=== PATIENT | female | born 1940 | race Caucasian/White ===

== ENCOUNTER → 2017-07-20 11:22 | Outpatient (CLI) | payer MEDICARE, OTHER, SELFPAY ==
[2017-07-20 12:18] LABS: AST(SGOT) 25 U/L (15-37); Alanine Aminotransfer ALT/SGPT 27 U/L (13-56); Albumin, Serum 3.5 g/dL (3.2-5.0); Alkaline Phosphatase 105 U/L (45-117); Bilirubin, Direct 0.08 mg/dL (0.00-0.30); Cholesterol 208 mg/dL (200); High Density Lipoprotein 54 mg/dL; Protein, Total 7.5 g/dL (6.4-8.2); Triglycerides 64 mg/dL; Very Low Density Lipoprotein 13 mg/dL (5-40)
== END ==
PROVIDERS: Family Provider Family Medicine; PCP Family Medicine; Visit Provider Internal Medicine Cardiovascular Disease
DX: E78.5 Hyperlipidemia, unspecified (principal)
CPT/HCPCS: 36415; 80061; 80076

== ENCOUNTER → 2018-01-01 11:32 | Outpatient (CLI) | payer MEDICARE, OTHER, SELFPAY ==
[2018-01-01 14:11] LABS: Hematocrit 41.6 % (37-47); Hemoglobin 14.6 g/dl (12.0-15.0); Mean Corpuscular Hgb 31.3 pg (27.0-32.0); Mean Corpuscular Volume 89.1 fL (81-99); Red Blood Count 4.67 M/mm3 (4.2-5.4); White Blood Count 6.4 K/mm3 (4.4-11.0)
[2018-01-01 14:12] LABS: Absolute Lymphocyte Count 2.32 X10^3/ul (0.83-4.51); Absolute Neutrophil Count 3.5 X10^3/uL (2.0-7.7); Basophil# 0.03 X10^3/uL; Basophil% 0.5 % (0-1); Eosinophil# 0.21 X10^3/uL; Eosinophils% 3.3 % (0-5); Lymphocyte # 2.32 X10^3/ul (4.0); Lymphocyte % 36.1 % (19-41); Mean Corp Hgb Conc 35.1 g/gl (32-36); Monocyte# 0.39 X10^3/uL; Monocyte% 6.1 % (0-10); Neutrophil # 3.47 X10^3/uL (2.7-7.7); Neutrophil % 53.8 % (47-70); POSITIVE COUNT NO; POSITIVE DIFFERENTIAL NO; POSITIVE MORPHOLOGY NO; Platelet Count 212 K/mm3 (150-450); RBC Distribution Width CV 12.6 % (11.6-14.6); RBC Distribution Width SD 40.5 fl (35.1-43.9)
[2018-01-01 14:18] LABS: ALB/GLOB Ratio 0.8 RATIO (0.9-2.4); AST(SGOT) 25 U/L (15-37); Alanine Aminotransfer ALT/SGPT 31 U/L (13-56); Albumin, Serum 3.5 g/dL (3.2-5.0); Alkaline Phosphatase 100 U/L (45-117); Anion Gap 7 (5-15); BUN 17 mg/dL (7-18); BUN/Creat Ratio 20.2 RATIO (10-20); Calcium,Total 9.5 mg/dL (8.5-10.1); Chloride 107 mmol/L (98-107); Cholesterol 191 mg/dL (200); Creatinine, Serum 0.84 mg/dL (0.55-1.02); EST Glomerular Filtration Rate 69 mL/min (>60); Est Glom Filt Rate - Afr Amer 84 mL/min (>60); Ferritin 24 ng/mL (8-252); Globulin 4.3 g/dL (2.2-4.2); Glucose 90 mg/dL (74-106); High Density Lipoprotein 49 mg/dL; Protein, Total 7.8 g/dL (6.4-8.2); Sodium Level 140 mmol/L (136-145); Thyroid Stim Hormone (TSH) 0.69 uIU/mL (0.358-3.74); Triglycerides 81 mg/dL; Very Low Density Lipoprotein 16 mg/dL (5-40)
[2018-01-01 14:25] LABS: Microalbumin,Random Urine 9.5 mg/L (NO RANGE EST.); Microalbumin:Creatinine Ratio 7.5 mg/g CRE (<30 mg/g CRE)
[2018-01-02 09:54] LABS: Vitamin B12 471 pg/mL (211-911)
== END ==
PROVIDERS: Family Provider Family Medicine; PCP Family Medicine; Visit Provider Family Medicine
DX: Z00.00 Encounter for general adult medical examination without abnormal findings (principal); I10 Essential (primary) hypertension; R53.83 Other fatigue
CPT/HCPCS: 36415; 80053; 80061; 82043; 82570; 82607; 82728; 84443; 85025

== ENCOUNTER → 2018-04-20 10:32 | Outpatient (CLI) | payer MEDICARE, OTHER, SELFPAY ==
--- NOTE | 2018-04-20 10:35 | BI_ITS ---
MAMMOGRAPHY - BILATERAL SCREENING REASON FOR EXAM: Female, 78 years old. Routine annual screening examination. PERTINENT HISTORY: Non-contributory. Remote right excisional breast biopsy. TECHNIQUE: Digital bilateral breast suzanna (3D mammographic acquisition) in the CC and MLO projections. 2-D mediolateral oblique (MLO) and craniocaudad (CC) views of both breasts were obtained. CAD: Full Field Digital Mammography with Computer Added Detection was performed. COMPARISON: Comparison is made with prior study dated April 10, 2017 and April 20, 2015. FINDINGS: Breast Composition: There are scattered areas of fibroglandular density. There are no dominant masses or suspicious calcifications. Stable small bilateral axillary lymph nodes. No other significant abnormalities are identified. There has been no significant change since the prior study. BI/SCREENING MAMM (CAD), BILAT IMPRESSION: Stable bilateral screening mammogram. Yearly follow-up mammogram recommended. (A) ASSESSMENT CATEGORY: BIRADS Category 2: Benign. A letter regarding these results will be sent to the patient by the facility within 30 days. Approximately 10% of breast cancers are not detected by mammography. A normal mammogram should not delay biopsy of a clinically suspicious abnormality. [id number] Electronically Signed: Lambert Collins MD at 8:51 EST Tel [phone], Service support ,
--- OUTSIDE RECORDS SUMMARY | 2018-07-24 09:48 | XMS RPT_ITS ---
:1940 Author Organization [facility] Care Team Providers Name Role Phone Vj Isabel Attending Unavailable Chalo, Vj Referring Unavailable Vj Isabel Primary Care Unavailable Joss Cutler Attending Unavailable Vj Isabel Referring Unavailable Vj Isabel Attending Unavailable Chalo, Vj Primary Care Unavailable Laci Guzmán Attending Unavailable Vj Isabel Referring Unavailable Laci Guzmán Attending Unavailable Arielle, Bronson Referring Unavailable Vj Iasbel Primary Care Unavailable Joss Cutler Attending Unavailable Joss Cutler Referring Unavailable Vj Isabel Primary Care Unavailable Laci Guzmán Attending Unavailable Vj Isabel Referring Unavailable PROBLEMS PROBLEMS DATE TYPE CONDITION / CODE ATTENDING STATUS SOURCE 05/27/2018 Unknown L98.9 - Disorder He Joss Active [place] of the skin and Community subcutaneous Hospital tissue, Repository unspecified / L98.9(ICD-10) 01/01/2018 Unknown R53.83 - Other Vj Isabel Active [place] fatigue / Community R53.83(ICD-10) Hospital Repository 01/01/2018 Unknown I10 - Essential Vj Isabel Active [place] (primary) Community hypertension / Hospital I10(ICD-10) Repository 01/01/2018 Unknown Z00.00 - Encounter Vj Isabel Active [place] for general adult [facility] examination Repository without abnormal findings / Z00.00(ICD-10) 07/20/2017 Unknown E78.5 - ArielleLaci louise Active [place] Hyperlipidemia, Community unspecified / Hospital E78.5(ICD-10) Repository PROCEDURES PROCEDURES No Procedure Records FoundRESULTS RESULTS SCREENING MAMM (CAD), Observed: 04/20/2018 Status: F Source: [facility] 10:36 AM [facility] H[facility] REPOSITORY [facility] Imaging Services [address] [place] [address] SCREENING MAMM (CAD), BILAT MR#: [id number] Acct: [id number] Name: JEROME ROJAS Rep #: [id number] : 1940 F 78 From: Lambert Collins MD PCP: Vj Isabel MD Status: [facility] Study: SCREENING MAMM (CAD), BILAT Date of Exam: 04/20/18 Exam# [id number] Ordering Dr: Vj Isabel MD MAMMOGRAPHY - BILATERAL SCREENING REASON FOR EXAM: Female, 78 years old. Routine annual screening examination. PERTINENT HISTORY: Non-contributory. Remote right excisional breast biopsy. TECHNIQUE: Digital bilateral breast suzanna (3D mammographic acquisition) in the CC and MLO projections. 2-D mediolateral oblique (MLO) and craniocaudad (CC) views of both breasts were obtained. CAD: Full Field Digital Mammography with Computer Added Detection was performed. COMPARISON: Comparison is made with prior study dated April 10, 2017 and April 20, 2015. FINDINGS: Breast Composition: There are scattered areas of fibroglandular density. There are no dominant masses or suspicious calcifications. Stable small bilateral axillary lymph nodes. No other significant abnormalities are identified. There has been no significant change since the prior study. BI/SCREENING MAMM (CAD), BILAT IMPRESSION: Stable bilateral screening mammogram. Yearly follow-up mammogram recommended. (A) ASSESSMENT CATEGORY: BIRADS Category 2: Benign. A letter regarding these results will be sent to the patient by the facility within 30 days. Approximately 10% of breast cancers are not detected by mammography. A normal mammogram should not delay biopsy of a clinically suspicious abnormality. [id number] Electronically Signed: Lambert Collins MD at 8:51 EST Tel [phone], Service support , CC: Vj Isabel MD Bench Lathe Operator: Signed CBC W/DIFF, AUTOMATED Collected: 01/01/2018 Status: F Source: [place] 11:33 AM [facility] REPOSITORY TYPE CODE TESTS RESULT OUT OF RANGE REFERENCE UNITS LAB L100.1000 4.4-11.0 K/mm3 Normal WBC 6.4 LAB L100.1200 4.2-5.4 M/mm3 Normal RBC 4.67 LAB L100.1300 12.0-15.0 g/dl Normal HGB 14.6 LAB L100.1400 37-47 % Normal HCT 41.6 LAB L100.1500 81-99 fL Normal MCV 89.1 LAB L100.1600 27.0-32.0 pg Normal MCH 31.3 LAB L100.1700 32-36 g/gl Normal MCHC 35.1 LAB L100.1810 11.6-14.6 % Normal RDW CV 12.6 LAB L100.1820 35.1-43.9 fl Normal RDW SD 40.5 LAB L100.1900 150-450 K/mm3 Normal PLT 212 LAB L100.2000 6.2-12.0 fl Normal MPV 10.0 LAB L100.2100 47-70 % Normal NEUT% 53.8 LAB L100.2200 19-41 % Normal LY% 36.1 LAB L100.2300 0-10 % Normal MONO% 6.1 LAB L100.2400 0-5 % Normal EO% 3.3 LAB L100.2500 0-1 % Normal BASO% 0.5 LAB L100.2550 0.0-0.9 % Normal IM GRAN % 0.200 Result Comment: IG% - Immature Granulocytes (promyelocytes, myelocytes and metamyelocytes) > 1% indicates that a LEFT SHIFT is Present. LAB L100.2620 2.0-7.7 X10 3/uL Normal Absolute Neut 3.5 LAB L100.2720 0.83-4.51 X10 3/ul Normal Absolute Lymph 2.32 Performed By: #### L100.0100 #### [facility] [address] [place], [address] COMPREHENSIVE METABOLIC Collected: 01/01/2018 Status: F Source: [place] 11:33 AM [facility] REPOSITORY Order Comment: Order Date: 01/01/18 Order Info: 0786-1 - CMP Order Info: [id number] - LIPID Order Info: 3016-3 - TSH TYPE CODE TESTS RESULT OUT OF RANGE REFERENCE UNITS LAB L501.0100 74-106 mg/dL Normal GLU 90 Result Comment: Please note revised GLUCOSE reference range effective 2017. LAB L501.1000 7-18 mg/dL Normal BUN 17 LAB L501.1100 0.55-1.02 mg/dL Normal CREAT,SERUM 0.84 Result Comment: The validity of the calculated GFR AND GFRAA in patients over 70 years has not been determined. Clinical correlation is essential. LAB L501.1110 >60 mL/min Normal EST GFR 69 Result Comment: Non- GFR Calc LAB L501.1115 >60 mL/min Normal EST GFR - AA 84 Result Comment: GFR Calc LAB L501.1300 10-20 RATIO High BUN/CRE 20.2 LAB L501.1500 6.4-8.2 g/dL T Normal PROT 7.8 LAB L501.1800 3.2-5.0 g/dL Normal ALB 3.5 LAB L501.1950 2.2-4.2 g/dL High GLOB 4.3 LAB L501.2000 0.9-2.4 RATIO Low A/G 0.8 LAB L501.2200 8.5-10.1 mg/dL CA Normal 9.5 LAB L501.4100 15-37 U/L Normal AST 25 LAB L501.4305 45-117 U/L Normal ALK P 100 LAB L501.4405 13-56 U/L Normal ALT 31 LAB L501.4600 0.20-1.00 mg/dL T Normal BILI 0.30 LAB L501.5300 136-145 mmol/L NA Normal 140 LAB L501.5600 3.5-5.1 mmol/L K Normal 4.0 LAB L501.5900 98-107 mmol/L CL Normal 107 LAB L501.6100 21.0-32.0 mmol/L Normal CO2 26.0 LAB L501.6200 5-15 Normal GAP 7 Performed By: #### L500.4050, L500.4100, L501.9520, L502.0250 #### [facility] [address] [place], [place], [address] LIPID PROFILE Collected: 01/01/2018 Status: F Source: [place] 11:33 AM [facility] REPOSITORY Order Comment: Order Date: 01/01/18 Order Info: 0786-1 - CMP Order Info: [id number] - LIPID Order Info: 3016-3 - TSH TYPE CODE TESTS RESULT OUT OF RANGE REFERENCE UNITS LAB L501.4900 200 mg/dL Normal CHOL 191 Result Comment: <200 mg/dL Desirable 200-240 mg/dL Borderline >240 mg/dL High Risk LAB L501.5000 mg/dL Normal TRIG 81 Result Comment: The drugs N-Acetylcysteine and Metamizole may falsely depress this assay. Serum Triglycerides Reference Interval Normal <150 mg/dL Borderline high 150 - 199 mg/dL High 200 - 499 mg/dL Very High > or = 500 mg/dL LAB L501.6400 mg/dL Normal HDL 49 Result Comment: The drugs N-Acetylcysteine and Metamizole may falsely depress this assay. Reference Range HDL <40 mg/dL Low HDL Cholesterol HDL >or= 60 mg/dL High HDL Cholesterol LAB L501.6500 0-130 mg/dL Normal LDL 126 LAB L501.6600 5-40 mg/dL Normal VLDL 16 Performed By: #### L500.4050, L500.4100, L501.9520, L502.0250 #### [facility] [address] [place], [address] THYROID STIM HORMONE Collected: 01/01/2018 Status: F Source: [place] (TSH) 11:33 AM [facility] REPOSITORY Order Comment: Order Date: 01/01/18 Order Info: 0786-1 - CMP Order Info: [id number] - LIPID Order Info: 3016-3 - TSH TYPE CODE TESTS RESULT OUT OF RANGE REFERENCE UNITS LAB L501.9520 0.358-3.74 uIU/mL Normal TSH 0.69 Performed By: #### L500.4050, L500.4100, L501.9520, L502.0250 #### [facility] [address] [place], [place], [address] MICROALB:CREAT Collected: 01/01/2018 Status: F Source: [place] RATIO,RANDOM UR 11:33 AM [facility] REPOSITORY Order Comment: Order Date: 01/01/18 Order Info: 0779-1 - MIACRE TYPE CODE TESTS RESULT OUT OF RANGE REFERENCE UNITS LAB L501.1200 NO RANGE EST. mg/dL Normal UR CREAT 128.00 LAB L502.0500 NO RANGE EST. mg/L Normal 9.5 MICROALBUMIN ,UR LAB L502.0600 <30 mg/g CRE mg/g CRE Normal 7.5 MALB:CREAT Performed By: #### L500.4050, L500.4100, L501.9520, L502.0250 #### [facility] [address] [place], [address] FERRITIN Collected: 01/01/2018 Status: F Source: [place] 11:33 AM [facility] REPOSITORY Order Comment: Order Date: 01/01/18 Order Info: 0786-1 - CMP Order Info: 47294-8 - LIPID Order Info: 3016-3 - TSH TYPE CODE TESTS RESULT OUT OF RANGE REFERENCE UNITS LAB L503.6550 8-252 ng/mL Normal FERRITIN 24 Performed By: #### L503.6550 #### [facility] [address] [place], [address] VITAMIN B12 Collected: 01/01/2018 Status: F Source: [place] 11:33 AM [facility] REPOSITORY TYPE CODE TESTS RESULT OUT OF RANGE REFERENCE UNITS LAB L503.0105 211-911 pg/mL Normal Vitamin B12 471 Performed By: #### L503.0105 #### [facility] [address] [place], [place], [address] LIVER PROFILE Collected: 07/20/2017 Status: F Source: [place] 11:29 AM [facility] REPOSITORY Order Comment: Order Date: 07/24/16 Order Info: 0788-1 - *Hepatic Function Panel Order Info: 52059-3 - *Lipid Profile CC PCP Comments: 12 hours fasting, may have water. TYPE CODE TESTS RESULT OUT OF RANGE REFERENCE UNITS LAB L501.1500 6.4-8.2 g/dL Normal T PROT 7.5 LAB L501.1800 3.2-5.0 g/dL Normal ALB 3.5 LAB L501.1950 2.2-4.2 g/dL Normal GLOB 4.0 LAB L501.4100 15-37 U/L Normal AST 25 LAB L501.4305 45-117 U/L Normal ALK P 105 LAB L501.4405 13-56 U/L Normal ALT 27 Result Comment: Please note revised ALT reference range effective 2017. LAB L501.4600 0.20-1.00 mg/dL Normal T BILI 0.40 LAB L501.4700 0.00-0.30 mg/dL Normal D BILI 0.08 Performed By: #### L500.3400 #### [facility] [address] [place], [address] LIPID PROFILE Collected: 07/20/2017 Status: F Source: [place] 11:29 AM [facility] REPOSITORY Order Comment: Order Date: 07/24/16 Order Info: 0788-1 - *Hepatic Function Panel Order Info: 19059-2 - *Lipid Profile CC PCP Comments: 12 hours fasting, may have water. TYPE CODE TESTS RESULT OUT OF RANGE REFERENCE UNITS LAB L501.4900 200 mg/dL High CHOL 208 Result Comment: <200 mg/dL Desirable 200-240 mg/dL Borderline >240 mg/dL High Risk LAB L501.5000 mg/dL Normal TRIG 64 Result Comment: The drugs N-Acetylcysteine and Metamizole may falsely depress this assay. Serum Triglycerides Reference Interval Normal <150 mg/dL Borderline high 150 - 199 mg/dL High 200 - 499 mg/dL Very High > or = 500 mg/dL LAB L501.6400 mg/dL Normal HDL 54 Result Comment: The drugs N-Acetylcysteine and Metamizole may falsely depress this assay. Reference Range HDL <40 mg/dL Low HDL Cholesterol HDL >or= 60 mg/dL High HDL Cholesterol LAB L501.6500 0-130 mg/dL High LDL 141 LAB L501.6600 5-40 mg/dL Normal VLDL 13 Performed By: #### L500.4100 #### [facility] [address] [place], [address] ALLERGIES ALLERGIES DATE TYPE / CODE NAME / CODE REACTION SEVERITY SOURCE 05/27/2018 Drug adhesive Unknown SV [facility] Allergy/416 tape/[id number] Hospital 462441(SNOM (RXNORM) Repository ED CT) 05/27/2018 Drug atorvastatin/F0 MYALGIAS [facility] 223409(SNOM ) Repository ED CT) 05/27/2018 Drug pineapple/F0060 Other Unknown [facility] Allergy/416 16279(RXNORM) Hospital 756265(SNOM Repository ED CT) ENCOUNTERS ENCOUNTERS ADMIT/DISCHARGE ACCOUNT ADMITTING ENCOUNTER LOCATION SOURCE NUMBER CLASS 05/27/2018 [id number] Ambulatory [address] ing:LABSPEC Repository 05/27/2018/01/21 [id number] Ambulatory BMSBuilding:B [place] 9 0 MS.[place] [facility] Repository 04/20/2018 [id number] Amb[place] 3 [facility] ing:OPBI Repository 01/01/2018 [id number] Ambulatory [place] 6 [facility] ing:MFPLAB Repository 09/14/2017 [id number] Ambulatory BMSBuilding:B [place] 4 [facility] Repository 07/26/2017 [id number] Ambulatory BMSBuilding:B [place] 2 [facility] Repository 07/20/2017 [id number] Ambulatory [place] 2 [facility] ing:LAB Repository PAYERS PAYERS ENCOUNTER GUARANTOR PAYER SUBSCRIBER SOURCE 05/27/2018 JEROME Hartman Primary JEROME Hartman [place] [id number] Insurance:MEDICARE HUMRICHOUSERDOB: [facility] [id number] Number: Repository [id number]: 330 [id number] [phone] (HP) Date:2018-05-27 05/27/2018 Secondary JEROME Hartman [place] Insurance:AARPPolicy HUMRICHOUSERDOB: [facility] Number: [id number] Hospital [id number] Repository Date:1678-14-42[address], [place] [address]WN: 05/27/2018 Tertiary NOT GIVENUNK [place] Insurance:SELF PAY [facility] Number: Effective Repository Date:2018-05-27 05/27/2018 JEROME Hartman Primary JEROME Hartman [place] [id number] Insurance:MEDICARE HUMRICHOUSERDOB: [facility] [id number] Number: Repository [id number]: 330 [id number] [phone] (HP) Date:2018-05-17 05/27/2018 Secondary JEROME Hartman [place] Insurance:AARPPolicy HUMRICHOUSERDOB: Community Number: [id number] Hospital [id number] Repository Date:6676-01-24ON [facility] [address], [place] [address]XU: 05/27/2018 Tertiary NOT GIVENUNK [place] Insurance:SELF PAY [facility] Number: Effective Repository Date:2018-05-24 04/20/2018 JEROME Hartman Primary JEROME Hartman [place] [id number] Insurance:MEDICARE HUMRICHOUSERDOB: [facility] PART [facility] [id number] Number: Repository [id number]: 330 [id number] [phone] (HP) Date:2018-01-01 04/20/2018 Secondary JEROME Hartman [place] Insurance:AARPPolicy HUMRICHOUSERDOB: Community Number: [id number] Hospital [id number] Repository Date:8483-38-40[address], [place] [address]DB: 04/20/2018 Tertiary NOT GIVENUNK [place] Insurance:SELF PAY [facility] Number: Effective Repository Date:2018-01-01 01/01/2018 Jerome Hartman Primary Jerome Hartman [place] [id number] Insurance:MEDICARE HumrichouserDOB: [facility] [id number] Number: Repository [id number]: 330 [id number] [phone] (HP) Date:2018-01-01 01/01/2018 Secondary Jerome Hartman [place] Insurance:AARPPolicy HumrichouserDOB: Community Number: [id number] Hospital [id number] Repository Date:4652-28-78[address], [place] [address]HV: 01/01/2018 Tertiary NOT GIVENUNK [place] Insurance:SELF PAY [facility] Number: Effective Repository Date:2018-01-01 09/14/2017 Jerome Hartman Primary Jerome Hartman [place] [id number] Insurance:MEDICARE HumrichouserDOB: [facility] [id number] [place] Number: Repository [id number]: [id number] [phone] Date:2017-07-25 () 09/14/2017 Secondary Jerome Hartman [place] Insurance:AARPPolicy HumrichouserDOB: Community Number: [id number] Hospital [id number] Repository Date:4364-27-73[address], [place] [address]HN: 09/14/2017 Tertiary NOT GIVENUNK [place] Insurance:SELF PAY [facility] Number: Effective Repository Date:2017-07-25 07/26/2017 Jerome Hartman Primary Jerome Hartman [place] [id number] Insurance:MEDICARE HumrichouserDOB: Community [place] [facility] [id number] [place] Number: Repository [id number]: [id number] [phone] Date:2017-04-15 () 07/26/2017 Secondary Jerome Minnie [place] Insurance:AARPPolicy HumrichouserDOB: Community Number: [id number] Hospital [id number] Repository Date:7508-79-79[address]OC[place], [place] [address]CF: 07/26/2017 Tertiary NOT GIVENUNK [place] Insurance:SELF PAY [facility] Number: Effective Repository Date:2017-04-15 07/20/2017 Jerome M Primary Jerome Hartman [place] [id number] Insurance:MEDICARE HumrichouserDOB: Community [place] [facility] [id number] [place] Number: Repository [address]Lzl: [id number] [phone] Date:2017-07-20 () 07/20/2017 Secondary Jerome Minnie [place] Insurance:AARPPolicy HumrichouserDOB: Community Number: [id number] Hospital [id number] Repository Date:9495-43-26[address]ZDWPGWW, [place] [address]KS: 07/20/2017 Tertiary NOT GIVENUNK [place] Insurance:SELF PAY [facility] Number: Effective Repository Date:2017-07-20
== END ==
PROVIDERS: Family Provider Family Medicine; PCP Family Medicine; Referring Provider Family Medicine; Visit Provider Family Medicine
DX: Z12.31 Encounter for screening mammogram for malignant neoplasm of breast (principal)
CPT/HCPCS: 77063; 77067

== ENCOUNTER → 2018-05-27 17:04 | Outpatient (CLI) | payer MEDICARE, OTHER, SELFPAY ==
--- NOTE | 2018-05-27 14:20 | LES_PTH ---
PATIENT: JEROME ROJAS LOC: [facility] U#:[id number] AGE/SX: 84/F ROOM: RE05/27/[address]: Dr. Joss Cutler MD : 1940 BED: DIS: SPEC #: [id number] RECD: 05/27/18 17:01 STATUS: COY COLLIN #: [id number] AMY: 05/27/18 14:[address]: Joss Cutler DEPT: SURGICAL PATHOLOGY RECD BY: Caleb Velasco ENTERED: 05/28/18 09:37 SP TYPE: Lesion OTHR DR: Dr. Vj Isabel MD Tissues: Skin of forearm, NOS Procedures: Surgery Specimen Level IV HEADER OPERATION: Excision left forearm skin lesion PRE-OP DIAGNOSIS: Skin lesion left forearm TISSUE SUBMITTED: Left forearm skin lesion MICROSCOPIC DIAGNOSIS Left forearm, skin lesion, excision: Minimally invasive squamous cell carcinoma, keratoacanthoma type. Solar elastosis. CE:leonie 05/29/18 COMMENT The tumor is entirely excised. Case has been reviewed in consultation with Dr. Richards who concurs with the above diagnosis. IDC:CE MICROSCOPIC DESCRIPTION Slides are reviewed. GROSS DESCRIPTION Received in fixative is one container labeled with the patient's name and designated skin lesion. The specimen consists of an ellipse of light francois excised skin measuring 3 x 1.5 cm and a depth of excision measuring 0.4 cm. The cutaneous surface displays a firm, francois-white lesion measuring 0.8 cm in greatest dimension. The specimen is inked, serially sectioned and totally submitted in two cassettes. / AM:leonie 05/28/18 TC:0 CPT: 94663
--- OUTSIDE RECORDS SUMMARY | 2018-07-30 04:39 | XMS RPT_ITS ---
:1940 Author Organization OHIP Care Team Providers Name Role Phone Vj Isabel Attending Unavailable Vj Isabel Referring Unavailable Vj Isabel Primary Care Unavailable Joss Cutler Attending Unavailable Vj Isabel Referring Unavailable Laci Guzmán Attending Unavailable Laci Guzmán Referring Unavailable Vj Isabel Primary Care Unavailable Arielle, Laci Attending Unavailable Vj Isabel Referring Unavailable Laci Guzmán Attending Unavailable Isabel, Vj Referring Unavailable Cebujamar, Joss Attending Unavailable Cebul, Joss Referring Unavailable Isabel, Vj Primary Care Unavailable Isabel, Vj Attending Unavailable Isabel, Vj Primary Care Unavailable PROBLEMS PROBLEMS DATE TYPE CONDITION / CODE ATTENDING STATUS SOURCE 05/27/2018 Unknown L98.9 - Disorder Joss Cutler Active [place] of the skin and Community subcutaneous Hospital tissue, Repository unspecified / L98.9(ICD-10) 01/01/2018 Unknown R53.83 - Other Vj Isabel Active [place] fatigue / Community R53.83(ICD-10) Hospital Repository 01/01/2018 Unknown I10 - Essential Vj Isabel Active [place] (primary) Community hypertension / Hospital I10(ICD-10) Repository 01/01/2018 Unknown Z00.00 - Encounter Vj Isabel Active [place] for general adult [facility] examination Repository without abnormal findings / Z00.00(ICD-10) 07/20/2017 Unknown E78.5 - Arielle, Laci Active [place] Hyperlipidemia, Community unspecified / Hospital E78.5(ICD-10) Repository PROCEDURES PROCEDURES No Procedure Records FoundRESULTS RESULTS SURGERY VISIT REPORT Observed: 05/30/2018 Status: F Source: [facility] 2:48 PM [facility] HOSPITAL REPOSITORY [facility] [address] [place] [address] [address] [place] [address] OFFICE VISIT Date of Service: 05/27/18 MR#: [id number] Acct: [id number] Name: JEROME ROJAS Rep #: [id number] : 1940 Provider: Joss Cutler MD Age/Sex: 78/F Location: [facility] Status: Signed Intake Intake Visit Reasons: Cyst on Left Arm - 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 Is patient in pain?: No Allergies pineapple Allergy (Verified 05/27/18 14:08) Other adhesive tape Adverse Reaction (Severe, Verified 05/27/18 14:08) Unknown atorvastatin [From Lipitor] Adverse Reaction (Severe, Verified 05/27/18 14:08) Myalgias Medications Amlodipine [Norvasc] 5 mg PO QHS 11/09/15 [History Confirmed 05/27/18] Multivit-Min/Iron/Folic/Lutein [Centrum Silver Women Tablet] 1 ea PO DAILY 11/09/15 [History Confirmed 05/27/18] aspirin 81 mg tablet,delayed release 81 mg PO QDAY tab 07/23/17 [History Confirmed 05/27/18] lisinopril 5 mg tablet 2.5 mg PO QHS tab 05/27/18 [History Confirmed 05/27/18] PFS Medical History GERD (gastroesophageal reflux disease) (Chronic) Hyperlipidemia (Chronic) Nonrheumatic tricuspid (valve) insufficiency (Chronic) Hypertension (Chronic) Osteoarthritis of both knees (Chronic) Surgical History History of basal cell carcinoma excision (Chronic) History of total abdominal hysterectomy (Chronic) History of bilateral cataract extraction (Chronic) History of cholecystectomy (Chronic) Status post total left knee replacement (Chronic) Family History Father , Age 59 from [place] CAD (coronary artery disease) Sudden cardiac Myocardial infarction Brother , Age 57, atrial fib complications Atrial fibrillation Brother , age 58 from [place] CAD (coronary artery disease) Myocardial infarction Sudden cardiac Social History Smoking Status: Never smoker HPI HPI HPI: JEROME ROJAS, is a 78 F who presents to the office today for surgical consultation regarding a rapidly growing tender exophytic skin lesion left mid dorsal forearm. Exam Extrem Other: Left mid dorsal forearm 7 mm diameter exophytic tender lesion Office Procedures Excision of Skin Provider Documentation Provider Documentation: Excision of tender exophytic nonhealing skin lesion left mid dorsal forearm Timeout and informed consent was obtained. 7 mm diameter exophytic lesion left mid dorsal forearm. It was prepped with Betadine. 1% lidocaine mixed 50-50 with 0.5% Marcaine was used as local anesthetic. Total of 10 cc was used. A slightly oblique 2.3 x 1 cm ellipse was used to completely excise the lesion. Subcutaneous flaps were raised. Hemostasis obtained with interrupted 3-0 chromic suture ligatures. Subdermal tissues approximated interrupted 3-0 chromic. Skin edges were approximated simple and mattress sutures of 4-0 nylon. Telfa OpSite dressing applied. The specimen was immediately submitted in formalin for analysis. She was given activity and wound care instructions. Alert Noah Alert Billing: Yes Procedure Time Out Time Out Informed consent given: Yes Consent signed: Yes Time out checklist: patient, procedure, site marked/identified, positioning of patient, supplies available, allergies confirmed, team agrees on procedure Time out staff in room: Yes Time out verified: Yes Time out date: 05/27/18 Time out time: 14:45 Assessment AND Plan Plan Findings are highly suspicious for a keratoacanthoma left mid dorsal forearm. I recommend complete elliptical excision. She is aware of technique, benefit, risks, alternatives. She elected to proceed definitively today. Complete excision was performed. The specimen is submitted in formalin for analysis. She has further office follow-up in 1 week for wound inspection and suture removal. Progress and prognosis are felt to be good. CC: Dr. Vj Cutler M.D., F.A.C.S. Orders Orders: Coding Level of Care Code Attention [employer] Professional Comment [id number] 05/30/18 1448 <Electronically signed by Joss Cutler MD> Date Joss Cutler MD Cosigner Signature: Date (if applicable) CC: Vj Isabel MD LESION (CHOOSE SITE) Observed: 05/27/2018 Status: F Source: [place] 2:20 PM [facility] Patient: JEROME ROJAS : 1940 (78/F) Acct Num: [id number] Phys: He ANDRES,[facility] Num: [id number] Loc: LABSPEC Specimen: [id number] Received: 05/27/181700 Spec Type: Lesion TISSUES 1 TISSUES: Skin of forearm, NOS COMMENT The tumor is entirely excised. Case has been reviewed in consultation with Dr. Richards who concurs with the above diagnosis. IDC:CE GROSS DESCRIPTION Received in fixative is one container labeled with the patient's name and designated skin lesion. The specimen consists of an ellipse of light francois excised skin measuring 3 x 1.5 cm and a depth of excision measuring 0.4 cm. The cutaneous surface displays a firm, francois-white lesion measuring 0.8 cm in greatest dimension. The specimen is inked, serially sectioned and totally submitted in two cassettes. / AM:leonie 05/28/18 TC:0 CPT: 01615 HEADER OPERATION: Excision left forearm skin lesion PRE-OP DIAGNOSIS: Skin lesion left forearm TISSUE SUBMITTED: Left forearm skin lesion MICROSCOPIC DESCRIPTION Slides are reviewed. MICROSCOPIC DIAGNOSIS Left forearm, skin lesion, excision: Minimally invasive squamous cell carcinoma, keratoacanthoma type. Solar elastosis. CE:leonie 05/29/18 Signed Uli Murillo, 05/30/18 <signature on file> Performed By: #### PLES #### [facility] [address] [place] [address]. [place], [address] SCREENING MAMM (CAD), Observed: 04/20/2018 Status: F Source: [facility] 10:36 AM [facility] Imaging Services [address] [place] [id number] SCREENING MAMM (CAD), BIL MR#: [id number] Acct: [id number] Name: JEROME ROJAS Rep #: [id number] : 1940 F 78 From: Lambert Collins MD PCP: Vj Isabel MD Status: [facility] Study: SCREENING MAMM (CAD), BILAT Date of Exam: 04/20/18 Exam# [id number] Ordering Dr: Vj Isabel MD MAMMOGRAPHY - [...] delay biopsy of a clinically suspicious abnormality. [id number] Electronically Signed: Lambert Collins MD at 8:51 EST Tel [phone], Service support , CC: Vj Isabel MD Design Director: Signed CBC W/DIFF, AUTOMATED Collected: 01/01/2018 Status: F Source: [place] 11:33 AM [facility] TYPE CODE TESTS RESULT OUT OF [...] Lymph 2.32 Performed By: #### L100.0100 #### [facility] [address] [place], [address] COMPREHENSIVE METABOLIC Collected: 01/01/2018 Status: F Source: [place] PERLITA 11:33 AM [facility] Order Comment: Order Date: 01/01/18 Order Info: [id number] - CMP Order Info: [id number] - LIPID Order Info: 3016-3 - TSH [...] By: #### L500.4050, L500.4100, L501.9520, L502.0250 #### [facility] [address] [place], [place], [address] LIPID PROFILE Collected: 01/01/2018 Status: F Source: [place] 11:33 AM [facility] Order Comment: Order Date: 01/01/18 Order Info: [id number] - CMP Order Info: [id number] - LIPID Order Info: 3016-3 - TSH [...] By: #### L500.4050, L500.4100, L501.9520, L502.0250 #### [facility] [address] [place], [address] THYROID STIM HORMONE Collected: 01/01/2018 Status: F Source: [place] (TSH) 11:33 AM [facility] Order Comment: Order Date: 01/01/18 Order Info: [id number] - CMP Order Info: [id number] - LIPID Order Info: 3016-3 - TSH TYPE CODE TESTS RESULT OUT OF RANGE REFERENCE UNITS LAB L501.9520 0.358-3.74 uIU/mL Normal TSH 0.69 Performed By: #### L500.4050, L500.4100, L501.9520, L502.0250 #### [facility] [address] [place], [place], [address] MICROALB:CREAT Collected: 01/01/2018 Status: F Source: [place] RATIO,RANDOM UR 11:33 AM [facility] Order Comment: Order Date: 01/01/18 Order Info: 0779-1 - MIACRE TYPE CODE TESTS RESULT OUT OF RANGE REFERENCE UNITS LAB L501.1200 NO RANGE EST. mg/dL Normal UR CREAT 128.00 LAB L502.0500 NO RANGE EST. mg/L Normal 9.5 MICROALBUMIN ,UR LAB L502.0600 <30 mg/g CRE mg/g CRE Normal 7.5 MALB:CREAT Performed By: #### L500.4050, L500.4100, L501.9520, L502.0250 #### [facility] [address] [place], [address] FERRITIN Collected: 01/01/2018 Status: F Source: [place] 11:33 AM [facility] Order Comment: Order Date: 01/01/18 Order Info: [id number] - CMP Order Info: 07354-7 - LIPID Order Info: 3016-3 - TSH TYPE CODE TESTS RESULT OUT OF RANGE REFERENCE UNITS LAB L503.6550 8-252 ng/mL Normal FERRITIN 24 Performed By: #### L503.6550 #### [facility] [address] [place], [address] VITAMIN B12 Collected: 01/01/2018 Status: F Source: [place] 11:33 AM [facility] TYPE CODE TESTS RESULT OUT OF RANGE REFERENCE UNITS LAB L503.0105 211-911 pg/mL Normal Vitamin B12 471 Performed By: #### L503.0105 #### [facility] [address] [place], [place], [address] LIVER PROFILE Collected: 07/20/2017 Status: F Source: [place] 11:29 AM [facility] Order Comment: Order Date: 07/24/16 Order Info: 0788-1 - *Hepatic Function Panel Order Info: 10549-2 - *Lipid Profile CC PCP Comments: 12 [...] BILI 0.08 Performed By: #### L500.3400 #### [facility] [address] [place], [address] LIPID PROFILE Collected: 07/20/2017 Status: F Source: [place] 11:29 AM [facility] Order Comment: Order Date: 07/24/16 Order Info: 0788-1 - *Hepatic Function Panel Order Info: 88523-8 - *Lipid Profile CC PCP Comments: 12 [...] VLDL 13 Performed By: #### L500.4100 #### [facility] [address] [place], [address] ALLERGIES ALLERGIES DATE TYPE / CODE NAME / CODE REACTION SEVERITY SOURCE 05/27/2018 Drug adhesive Unknown [facility] Allergy/416 tape/[id number] Hospital 405669(SNOM (RXNORM) Repository ED CT) 05/27/2018 Drug atorvastatin/F0 MYALGIAS [facility] Allergy[facility] 08725250[facility] 047067(SNOM ) Repository ED CT) 05/27/2018 Drug pineapple/F0060 Other Unknown [facility] Allergy/416 74592(RXNORM) Hospital 208644(SNOM Repository ED CT) ENCOUNTERS ENCOUNTERS ADMIT/DISCHARGE ACCOUNT ADMITTING ENCOUNTER LOCATION SOURCE NUMBER CLASS 05/27/2018 [id number] Ambulatory [address] ing:LABSPEC Repository 05/27/2018/01/21 [id number] Ambulatory BMSBuilding:B [place] 9 0 [facility] Repository 04/20/2018 [id number] Ambulatory [place] 3 [facility] ing:OPBI Repository 01/01/2018 [id number] Ambulatory [place] 6 [facility] ing:MFPLAB Repository 09/14/2017 [id number] Ambulatory BMSBuilding:B [place] 4 [facility] Repository 07/26/2017 [id number] Ambulatory BMSBuilding:B [place] 2 [facility] Repository 07/20/2017 [id number] Ambulatory [place] 2 [facility] ing:LAB Repository PAYERS PAYERS ENCOUNTER GUARANTOR PAYER SUBSCRIBER SOURCE 05/27/2018 JEROME Hartman Primary JEROME Hartman [place] [id number] Insurance:MEDICARE HUMRICHOUSERDOB: [facility] [id number] Number: Repository [id number]: 330 [id number] [phone] (HP) Date:2018-05-27 05/27/2018 Secondary JEROME Hartman [place] Insurance:AARPPolicy HUMRICHOUSERDOB: [facility] Number: [id number] Hospital [id number] Repository Date:0865-93-62[address], [place] [address]GA: 05/27/2018 Tertiary NOT GIVENUNK [place] Insurance:SELF PAY [facility] Number: Effective Repository Date:2018-05-27 05/27/2018 JEROME Hartman Primary JEROME Hartman [place] [id number] Insurance:MEDICARE HUMRICHOUSERDOB: [facility] [id number] Number: Repository [id number]: 330 [id number] [phone] (HP) Date:2018-05-17 05/27/2018 Secondary JEROME Hartman [place] Insurance:AARPPolicy HUMRICHOUSERDOB: Community Number: [id number] Hospital [id number] Repository Date:2204-90-35OU [facility] [place], [place] [address]CO: 05/27/2018 Tertiary NOT GIVENUNK [place] Insurance:SELF PAY [facility] Number: Effective Repository Date:2018-05-24 04/20/2018 JEROME Hartman Primary JEROME Hartman [place] [id number] Insurance:MEDICARE HUMRICHOUSERDOB: [facility] PART A [facility] [id number] Number: Repository [id number]: 330 [id number] [phone] (HP) Date:2018-01-01 04/20/2018 Secondary JEROME Hartman [place] Insurance:AARPPolicy HUMRICHOUSERDOB: Community Number: [id number] Hospital [id number] Repository Date:4976-74-47[address], [place] [address]DH: 04/20/2018 Tertiary NOT GIVENUNK [place] Insurance:SELF PAY [facility] Number: Effective Repository Date:2018-01-01 01/01/2018 Jerome Hartman Primary Jerome Hartman [place] [id number] Insurance:MEDICARE HumrichouserDOB: [facility] PART A [facility] [id number] Number: Repository [phone]: 330 [id number] [phone] (HP) Date:2018-01-01 01/01/2018 Secondary Jerome Hartman [place] Insurance:AARPPolicy HumrichouserDOB: Community Number: [id number] [facility] [id number] Repository Date:6568-28-44[address], [place] [address]LY: 01/01/2018 Tertiary NOT GIVENUNK [place] Insurance:SELF PAY [facility] Number: Effective Repository Date:2018-01-01 09/14/2017 Jerome Hartman Primary Jerome Hartman [place] [id number] Insurance:MEDICARE HumrichouserDOB: [facility] PART A [facility] [id number] [place] Number: Repository [id number]: [id number] [phone] Date:2017-07-25 () 09/14/2017 Secondary Jerome Hartman [place] Insurance:AARPPolicy HumrichouserDOB: Community Number: [id number] Hospital [id number] Repository Date:4557-53-88[address], [place] [address]JF: 09/14/2017 Tertiary NOT GIVENUNK [place] Insurance:SELF PAY [facility] Number: Effective Repository Date:2017-07-25 07/26/2017 Jerome Hartman Primary Jerome Hartman [place] [id number] Insurance:MEDICARE HumrichouserDOB: Community [place] PART A [facility] [id number] [place] Number: Repository [id number]: [id number] [phone] Date:2017-04-15 () 07/26/2017 Secondary Jerome Minnie [place] Insurance:AARPPolicy HumrichouserDOB: Community Number: [id number] Hospital [id number] Repository Date:3284-55-13[address], [place] [address]KE: 07/26/2017 Tertiary NOT GIVENUNK [place] Insurance:SELF PAY [facility] Number: Effective Repository Date:2017-04-15 07/20/2017 Jerome M Primary Jerome Hartman [place] [id number] Insurance:MEDICARE HumrichouserDOB: Community [place] PART A [facility] [id number] Number: Repository [id number]: [id number] [phone] Date:2017-07-20 () 07/20/2017 Secondary Jerome Minnie [place] Insurance:AARPPolicy HumrichouserDOB: Community Number: [id number] Hospital [id number] Repository Date:2824-15-49[address], [place] [address]SG: 07/20/2017 Tertiary NOT GIVENUNK [place] Insurance:SELF PAY [facility] Number: Effective Repository Date:2017-07-20
== END ==
PROVIDERS: Family Provider Family Medicine; PCP Family Medicine; Referring Provider Surgery; Visit Provider Surgery
DX: L98.9 Disorder of the skin and subcutaneous tissue, unspecified (principal)
CPT/HCPCS: 88305

== ENCOUNTER → 2018-09-10 08:17 | Outpatient (CLI) | payer MEDICARE, OTHER, SELFPAY ==
[2018-09-10 10:45] LABS: Microalbumin,Random Urine 11.8 mg/L (NO RANGE EST.); Microalbumin:Creatinine Ratio 10.4 mg/g CRE (<30 mg/g CRE)
[2018-09-10 11:11] LABS: Anion Gap 10 (5-15); BUN 21 mg/dL (7-18); BUN/Creat Ratio 25.4 RATIO (10-20); Calcium,Total 9.8 mg/dL (8.5-10.1); Chloride 106 mmol/L (98-107); Cholesterol 198 mg/dL (200); Creatinine, Serum 0.83 mg/dL (0.55-1.02); EST Glomerular Filtration Rate 70 mL/min (>60); Est Glom Filt Rate - Afr Amer 85 mL/min (>60); Glucose 92 mg/dL (74-106); High Density Lipoprotein 58 mg/dL; Potassium 4.2 mmol/L (3.5-5.1); Sodium Level 142 mmol/L (136-145); Triglycerides 87 mg/dL; Very Low Density Lipoprotein 17 mg/dL (5-40)
== END ==
PROVIDERS: Family Provider Family Medicine; PCP Family Medicine; Referring Provider Family Medicine; Visit Provider Family Medicine
DX: I10 Essential (primary) hypertension (principal); E78.5 Hyperlipidemia, unspecified
CPT/HCPCS: 36415; 80048; 80061; 82043; 82570

== ENCOUNTER → 2020-05-14 10:16 | Outpatient (CLI) | payer MEDICARE, OTHER, SELFPAY ==
--- NOTE | 2020-05-14 10:21 | BI_ITS ---
MAMMOGRAPHY - BILATERAL SCREENING REASON FOR EXAM: Female, 80 years old. Routine annual screening examination. PERTINENT HISTORY: Non-contributory. Remote right excisional breast biopsy. TECHNIQUE: Digital bilateral breast abrahan (3D mammographic acquisition) in the CC and MLO projections. 2-D mediolateral oblique (MLO) and craniocaudad (CC) views of both breasts were obtained. CAD: Full Field Digital Mammography with Computer Added Detection was performed. COMPARISON: Comparison is made with prior study dated 04/20/2018 and 04/10/2007 FINDINGS: Breast Composition: There are scattered areas of fibroglandular density. There is a 1 cm x 1 cm well-defined nodule in the upper lateral deep portion of the left breast. Correlation with ultrasound is recommended. Stable small bilateral benign appearing axillary lymph nodes. No other significant abnormalities are identified. BI/SCREEN MAMM (CAD) W/ABRAHAN BILAT IMPRESSION: 1 cm x 1 cm well-defined nodule in the upper lateral deep portion of the left breast. Correlation with ultrasound is recommended. ASSESSMENT CATEGORY: BIRADS Category 0: Incomplete. Need additional imaging evaluation. A letter regarding these results will be sent to the patient by the facility within 30 days. Approximately 10% of breast cancers are not detected by mammography. A normal mammogram should not delay biopsy of a clinically suspicious abnormality. [id number] Electronically Signed: Lambert Collins, at 11:23 EST , Service support ,
== END ==
PROVIDERS: PCP Family Medicine; Visit Provider Nurse Practitioner Adult Health
DX: Z12.31 Encounter for screening mammogram for malignant neoplasm of breast (principal)
CPT/HCPCS: 77063; 77067

== ENCOUNTER → 2020-05-24 11:07 | Outpatient (CLI) | payer MEDICARE, OTHER, SELFPAY ==
--- NOTE | 2020-05-24 11:08 | US_ITS ---
STUDY: ULTRASOUND BREAST - LEFT REASON FOR EXAM: Female, 80 years old. Abnormal screening mammogram. TECHNIQUE: Axial and longitudinal images of the LEFT breast were performed with a high resolution ultrasound transducer. # OF IMAGES: 34 COMPARISON: Comparison is made with prior examination dated 05/14/2020 and 04/20/2008. FINDINGS: LEFT Breast: The mammographic abnormality corresponds to a 4 mm x 5 mm x 2 mm cyst at the 12 o''clock position of the breast at 1 cm from nipple. US/Breast Limited Unilateral IMPRESSION: The mammographic abnormality corresponds to a 4 mm x 5 mm x 2 mm cyst at the 12 o''clock position of the breast at 1 cm from nipple. ASSESSMENT CATEGORY: BIRADS Category 2: Benign. A letter regarding these results will be sent to the patient by the facility within 30 days. Electronically Signed: Lambert Collins MD at 8:25 EST , Service support ,
== END ==
PROVIDERS: PCP Family Medicine; Referring Provider Nurse Practitioner Adult Health; Visit Provider Nurse Practitioner Adult Health
DX: R92.8 Other abnormal and inconclusive findings on diagnostic imaging of breast (principal)
CPT/HCPCS: 76642

== ENCOUNTER 2020-05-27 14:46 | Outpatient (RCR) | payer MEDICARE, OTHER, SELFPAY | END 2020-05-27 23:59 | LOC: IMMUN 14:46 | PROVIDERS: PCP Family Medicine; Visit Provider Family Medicine | DX: Z23 Encounter for immunization (principal) | CPT/HCPCS: 0011A; 0012A; 91301 ==

== ENCOUNTER → 2020-10-18 11:22 | Outpatient (CLI) | payer MEDICARE, OTHER, SELFPAY ==
[2020-10-18 15:26] LABS: Absolute Lymphocyte Count 1.52 X10^3/uL (0.83-4.51); Absolute Neutrophil Count 3.5 X10^3/uL (2.0-7.7); Basophil# 0.06 X10^3/uL; Eosinophil# 0.19 X10^3/uL; Eosinophils% 3.2 % (0-5); Hematocrit 45.4 % (37-47); Hemoglobin 14.6 g/dL (12.0-15.0); Lymphocyte # 1.52 X10^3/ul (0.83-4.51); Lymphocyte % 25.7 % (19-41); Mean Corp Hgb Conc 32.2 g/dL (32-36); Mean Corpuscular Hgb 31.4 pg (27.0-32.0); Mean Corpuscular Volume 97.6 fL (81-99); Mean Platelet Vol. 10.5 fl (6.2-12.0); Monocyte# 0.57 X10^3/uL; Monocyte% 9.6 % (0-10); NRBC Flagged by Analyzer 0 % (0-5); Neutrophil # 3.54 X10^3/uL (2.7-7.7); Platelet Count 333 K/mm3 (150-450); RBC Distribution Width SD 46.2 fl (35.1-43.9); Red Blood Count 4.65 M/mm3 (4.2-5.4); White Blood Count 5.9 K/mm3 (4.4-11.0)
[2020-10-18 15:57] LABS: ALB/GLOB Ratio 0.9 RATIO (0.9-2.4); AST(SGOT) 33 U/L (15-37); Alanine Aminotransfer ALT/SGPT 33 U/L (13-56); Albumin, Serum 3.6 g/dL (3.2-5.0); Alkaline Phosphatase 106 U/L (45-117); Anion Gap 7 (5-15); BUN 19 mg/dL (7-18); BUN/Creat Ratio 24.1 RATIO (10-20); Calcium,Total 9.5 mg/dL (8.5-10.1); Chloride 106 mmol/L (98-107); Cholesterol 183 mg/dL (200); Creatinine, Serum 0.79 mg/dL (0.55-1.02); EST Glomerular Filtration Rate 74 mL/min (>60); Est Glom Filt Rate - Afr Amer 90 mL/min (>60); Glucose 88 mg/dL (74-106); High Density Lipoprotein 60 mg/dL; Potassium 3.7 mmol/L (3.5-5.1); Protein, Total 7.6 g/dL (6.4-8.2); Sodium Level 142 mmol/L (136-145)
[2020-10-18 16:12] LABS: Microalbumin,Random Urine 12.9 mg/L (NO RANGE EST.); Microalbumin:Creatinine Ratio 11.3 mg/g CRE (<30 mg/g CRE)
[2020-10-20 13:18] LABS: LDL, Direct 120295 105 mg/dL (0-99)
== END ==
PROVIDERS: PCP Family Medicine; Visit Provider Family Medicine
DX: I10 Essential (primary) hypertension (principal)
CPT/HCPCS: 36415; 80053; 82043; 82465; 82570; 83718; 83721; 85025

== ENCOUNTER 2021-05-16 09:05 | Outpatient (CLI) | payer MEDICARE, OTHER, SELFPAY ==
[2021-05-16 10:37] LABS: Microalbumin,Random Urine 12.3 mg/L (NO RANGE EST.); Microalbumin:Creatinine Ratio 9.9 mg/g CRE (<30 mg/g CRE)
[2021-05-16 11:23] LABS: ALB/GLOB Ratio 0.8 RATIO (0.9-2.4); AST(SGOT) 23 U/L (15-37); Alanine Aminotransfer ALT/SGPT 28 U/L (13-56); Albumin, Serum 3.4 g/dL (3.2-5.0); Alkaline Phosphatase 95 U/L (45-117); Anion Gap 4 (5-15); BUN 20 mg/dL (7-18); BUN/Creat Ratio 26.1 RATIO (10-20); Calcium,Total 9.8 mg/dL (8.5-10.1); Chloride 104 mmol/L (98-107); Cholesterol 196 mg/dL (200); Creatinine, Serum 0.77 mg/dL (0.55-1.02); EST Glomerular Filtration Rate 76 mL/min (>60); Est Glom Filt Rate - Afr Amer 93 mL/min (>60); Globulin 4.2 g/dL (2.2-4.2); Glucose 91 mg/dL (74-106); High Density Lipoprotein 58 mg/dL; Potassium 3.9 mmol/L (3.5-5.1); Protein, Total 7.6 g/dL (6.4-8.2); Sodium Level 138 mmol/L (136-145); Triglycerides 84 mg/dL; Very Low Density Lipoprotein 17 mg/dL (5-40)
== END 2021-05-16 23:59 | disposition short-term general hospital (02) ==
LOC: MFPLAB 09:07
PROVIDERS: PCP Family Medicine; Visit Provider Family Medicine
DX: E78.5 Hyperlipidemia, unspecified (principal); I10 Essential (primary) hypertension
CPT/HCPCS: 36415; 80053; 80061; 82043; 82570

== ENCOUNTER → 2021-10-17 | Outpatient (CLI) | payer MEDICARE, OTHER, SELFPAY ==
[2021-10-17 12:25] LABS: Microalbumin,Random Urine 7.6 mg/L (NO RANGE EST.); Microalbumin:Creatinine Ratio 12.4 mg/g CRE (<30 mg/g CRE)
[2021-10-17 12:34] LABS: Anion Gap 4 (5-15); BUN 21 mg/dL (7-18); BUN/Creat Ratio 24.2 RATIO (10-20); Calcium,Total 9.9 mg/dL (8.5-10.1); Chloride 107 mmol/L (98-107); Creatinine, Serum 0.87 mg/dL (0.55-1.02); EST Glomerular Filtration Rate 66 mL/min (>60); Est Glom Filt Rate - Afr Amer 80 mL/min (>60); Glucose 100 mg/dL (74-106); Potassium 4.3 mmol/L (3.5-5.1); Sodium Level 139 mmol/L (136-145); Thyroid Stim Hormone (TSH) 0.83 uIU/mL (0.358-3.74)
== END | disposition home or self-care (01) ==
LOC: MFPLAB 09:38
PROVIDERS: PCP Family Medicine; Visit Provider Family Medicine
DX: I10 Essential (primary) hypertension (principal)
CPT/HCPCS: 36415; 80048; 82043; 82570; 84443

== ENCOUNTER → 2022-03-21 | Outpatient (CLI) | payer MEDICARE, OTHER, SELFPAY ==
[2022-03-21 12:20] LABS: ALB/GLOB Ratio 0.9 RATIO (0.9-2.4); AST(SGOT) 22 U/L (15-37); Alanine Aminotransfer ALT/SGPT 24 U/L (13-56); Albumin, Serum 3.6 g/dL (3.2-5.0); Alkaline Phosphatase 99 U/L (45-117); Anion Gap 7 (5-15); BUN 23 mg/dL (7-18); BUN/Creat Ratio 27.5 RATIO (10-20); Calcium,Total 10.2 mg/dL (8.5-10.1); Chloride 103 mmol/L (98-107); Creatinine, Serum 0.84 mg/dL (0.55-1.02); EST Glomerular Filtration Rate 69 mL/min (>60); Est Glom Filt Rate - Afr Amer 83 mL/min (>60); Globulin 4.1 g/dL (2.2-4.2); Glucose 95 mg/dL (74-106); Protein, Total 7.7 g/dL (6.4-8.2); Sodium Level 138 mmol/L (136-145)
[2022-03-21 12:34] LABS: Microalbumin,Random Urine 16.1 mg/L (NO RANGE EST.); Microalbumin:Creatinine Ratio 13.5 mg/g CRE (<30 mg/g CRE)
== END | disposition home or self-care (01) ==
PROVIDERS: PCP Family Medicine; Referring Provider Family Medicine; Visit Provider Nurse Practitioner Family
DX: I10 Essential (primary) hypertension (principal)
CPT/HCPCS: 36415; 80053; 82043; 82570

== ENCOUNTER → 2022-10-12 | Outpatient (CLI) | payer MEDICARE, OTHER, SELFPAY ==
[2022-10-12 15:32] LABS: Absolute Neutrophil Count 5.5 X10^3/uL (2.0-7.7); Basophil# 0.06 X10^3/uL; Basophil% 0.8 % (0-1); Eosinophil# 0.11 X10^3/uL; Eosinophils% 1.5 % (0-5); Hematocrit 44.2 % (37-47); Hemoglobin 14.2 g/dL (12.0-15.0); Lymphocyte % 17.2 % (19-41); Mean Corp Hgb Conc 32.1 g/dL (32-36); Mean Corpuscular Hgb 31.3 pg (27.0-32.0); Mean Corpuscular Volume 97.6 fL (81-99); Mean Platelet Vol. 10.2 fl (6.2-12.0); Monocyte# 0.52 X10^3/uL; Monocyte% 6.9 % (0-10); NRBC Flagged by Analyzer 0 % (0-5); Neutrophil # 5.51 X10^3/uL (2.7-7.7); Neutrophil % 73.1 % (47-70); Platelet Count 335 K/mm3 (150-450); RBC Distribution Width CV 13.1 % (11.6-14.6); RBC Distribution Width SD 46.7 fl (35.1-43.9); Red Blood Count 4.53 M/mm3 (4.2-5.4); White Blood Count 7.5 K/mm3 (4.4-11.0)
[2022-10-12 16:17] LABS: ALB/GLOB Ratio 1.1 RATIO (0.9-2.4); AST(SGOT) 23 U/L (15-37); Alanine Aminotransfer ALT/SGPT 24 U/L (13-56); Albumin, Serum 3.6 g/dL (3.2-5.0); Alkaline Phosphatase 103 U/L (45-117); Anion Gap 5 (5-15); BUN 21 mg/dL (7-18); BUN/Creat Ratio 27.6 RATIO (10-20); Calcium,Total 9.9 mg/dL (8.5-10.1); Chloride 109 mmol/L (98-107); Creatinine, Serum 0.76 mg/dL (0.55-1.02); EST Glomerular Filtration Rate 77 mL/min (>60); Est Glom Filt Rate - Afr Amer 93 mL/min (>60); Globulin 3.3 g/dL (2.2-4.2); Glucose 97 mg/dL (74-106); Potassium 4.4 mmol/L (3.5-5.1); Protein, Total 6.9 g/dL (6.4-8.2); Sodium Level 141 mmol/L (136-145)
== END | disposition home or self-care (01) ==
LOC: MFPLAB 12:23
PROVIDERS: PCP Family Medicine; Visit Provider Family Medicine
DX: I10 Essential (primary) hypertension (principal); M79.604 Pain in right leg
CPT/HCPCS: 36415; 80053; 85025

== ENCOUNTER → 2023-03-20 | Outpatient (CLI) | payer MEDICARE, OTHER, SELFPAY ==
[2023-03-20 13:01] LABS: Anion Gap 0 (5-15); BUN 21 mg/dL (7-18); BUN/Creat Ratio 24.9 RATIO (10-20); Calcium,Total 10.2 mg/dL (8.5-10.1); Chloride 107 mmol/L (98-107); Creatinine, Serum 0.84 mg/dL (0.55-1.02); EST Glomerular Filtration Rate 68 mL/min (>60); Est Glom Filt Rate - Afr Amer 83 mL/min (>60); Glucose 89 mg/dL (74-106); Potassium 4.2 mmol/L (3.5-5.1); Sodium Level 141 mmol/L (136-145)
[2023-03-20 13:24] LABS: Microalbumin,Random Urine 8.3 mg/L (NO RANGE EST.); Microalbumin:Creatinine Ratio 9.4 mg/g CRE (<30 mg/g CRE)
== END | disposition home or self-care (01) ==
LOC: MFPLAB 10:41
PROVIDERS: PCP Family Medicine; Visit Provider Family Medicine
DX: I10 Essential (primary) hypertension (principal)
CPT/HCPCS: 36415; 80048; 82043; 82570

== ENCOUNTER → 2023-11-29 | Outpatient (CLI) | payer MEDICARE, OTHER, SELFPAY ==
--- NOTE | 2023-11-29 12:22 | BI_ITS ---
MAMMOGRAPHY - BILATERAL SCREENING REASON FOR EXAM: Female, 83 years old. Routine annual screening examination. PERTINENT HISTORY: Non-contributory. History remote right excisional breast biopsy. TECHNIQUE: Digital bilateral breast abrahan (3D mammographic acquisition) in the CC and MLO projections. 2-D mediolateral oblique (MLO) and craniocaudad (CC) views of both breasts were obtained. CAD: Full Field Digital Mammography with Computer Added Detection was performed. COMPARISON: Comparison is made with prior study May 2020 and April 20, 2016. FINDINGS: Breast Composition: There are scattered areas of fibroglandular density. There are no dominant masses or suspicious calcifications. The previously seen 1 cm well-defined nodule in the upper lateral aspect of the left breast is not seen at this time. No other significant abnormalities are identified. BI/SCRN MAMM (CAD)W/ABRAHAN BILAT IMPRESSION: Stable bilateral screening mammogram. Yearly follow-up mammogram recommended. (A) ASSESSMENT CATEGORY: BIRADS Category 1: Negative. A letter regarding these results will be sent to the patient by the facility within 30 days. Approximately 10% of breast cancers are not detected by mammography. A normal mammogram should not delay biopsy of a clinically suspicious abnormality. [id number] Electronically Signed: Lambert Collins MD at 13:35 EDT ,
== END | disposition home or self-care (01) ==
LOC: OPBI 12:21
PROVIDERS: PCP Family Medicine; Referring Provider Family Medicine; Visit Provider Family Medicine
DX: Z12.31 Encounter for screening mammogram for malignant neoplasm of breast (principal)
CPT/HCPCS: 77063; 77067

== ENCOUNTER → 2024-04-21 | Outpatient (CLI) | payer MEDICARE, OTHER, SELFPAY ==
[2024-04-21 13:36] LABS: ALB/GLOB Ratio 0.8 RATIO (0.9-2.4); AST(SGOT) 26 U/L (15-37); Alanine Aminotransfer ALT/SGPT 22 U/L (13-56); Albumin, Serum 3.2 g/dL (3.2-5.0); Alkaline Phosphatase 93 U/L (45-117); Anion Gap 7 (5-15); BUN 18 mg/dL (7-18); BUN/Creat Ratio 23.5 RATIO (10-20); Calcium,Total 10.2 mg/dL (8.5-10.1); Chloride 110 mmol/L (98-107); Creatinine, Serum 0.77 mg/dL (0.55-1.02); EST Glomerular Filtration Rate 76 mL/min (>60); Est Glom Filt Rate - Afr Amer 92 mL/min (>60); Glucose 92 mg/dL (74-106); Potassium 3.9 mmol/L (3.5-5.1); Protein, Total 7.2 g/dL (6.4-8.2); Sodium Level 141 mmol/L (136-145)
[2024-04-21 14:14] LABS: Microalbumin,Random Urine 8.2 mg/L (NO RANGE EST.); Microalbumin:Creatinine Ratio 10.4 mg/g CRE (<30 mg/g CRE)
== END | disposition home or self-care (01) ==
LOC: MFPLAB 09:41
PROVIDERS: PCP Family Medicine; Referring Provider Family Medicine; Visit Provider Family Medicine
DX: I10 Essential (primary) hypertension (principal)
CPT/HCPCS: 36415; 80053; 82043; 82570

== ENCOUNTER → 2024-12-23 | Outpatient (CLI) | payer MEDICARE, OTHER, SELFPAY ==
--- NOTE | 2024-12-23 06:16 | ECHOD_ITS ---
Reason For Study Reason For Study: Arrhytmia Procedure This was a 2D Doppler, Color Flow transthoracic echocardiogram. Exam performed in department. Left Ventricle Normal LV size. Left ventricular systolic function is normal. The left ventricular ejection fraction is 60 %. No regional wall motion abnormalities noted. Right Ventricle Normal RV size. Normal systolic function. Atria Normal left atrium. Normal right atrium. Mitral Valve There is mild to moderate mitral annular calcification. Mild (1+) eccentric mitral valve insufficiency. Tricuspid Valve Normal tricuspid valve. Mild (1+) tricuspid valve insufficiency. Aortic Valve Trisinus/trileaflet aortic valve. Mild focal aortic valve calcification. Pulmonic Valve Normal pulmonic valve. Trivial pulmonic valve insufficiency. Great Vessels Normal aortic root. The pulmonary artery is normal size. Inferior vena cava collapse with respiration. Pericardium/Pleural No pericardial effusion. MMode/2D Measurements & Calculations LVIDd: 4.5 cm IVSd: 1.0 cm LVOT diam: 1.9 cm LVIDs: 2.3 cm LVPWd: 0.89 cm LVOT area: 2.8 cm2 RVDd: 3.7 cm FS: 47.6 % Ao root diam: 3.1 cm LAV(MOD-bp): 34.2 ml LVAd ap4: 22.4 cm2 LAV(MOD-bp) Indexed: 19.5 ml/m2 LVLd ap4: 7.5 cm LAV(MOD-sp2): 29.3 ml EDV(MOD-sp4): 56.3 ml LAV(MOD-sp4): 40.5 ml EDV(sp4-el): 57.2 ml LVAs ap4: 10.6 cm2 LVLs ap4: 5.9 cm ESV(MOD-sp4): 17.4 ml ESV(sp4-el): 16.3 ml EF(MOD-sp4): 69.0 % EF(sp4-el): 71.4 % LVAd ap2: 21.8 cm2 SV(MOD-sp4): 38.9 ml SV(MOD-sp2): 38.5 ml LVLd ap2: 7.0 cm SI(MOD-sp4): 22.1 ml/m2 SI(MOD-sp2): 21.9 ml/m2 EDV(MOD-sp2): 59.0 ml EDV(sp2-el): 57.7 ml LVAs ap2: 12.1 cm2 LVLs ap2: 6.2 cm ESV(MOD-sp2): 20.4 ml ESV(sp2-el): 20.3 ml EF(MOD-sp2): 65.3 % SV(sp4-el): 40.8 ml Aortic Valve Planimetry: 2.0 cm2 LA A4 area: 16.0 cm2 LA dimension(2D): 3.5 cm RA A4 area: 16.0 cm2 TAPSE: 2.7 cm Time Measurements MV dec time: 0.23 sec Doppler Measurements & Calculations MV E max luca: 99.2 cm/sec Lat Peak E' Luca: 8.2 cm/sec Med Peak E' Luca: 7.2 cm/sec MV A max luca: 104.5 cm/sec E/E' lat: 12.0 E/E' med: 13.9 MV E/A: 0.95 Ao V2 max: 214.4 cm/sec LV V1 max: 144.4 cm/sec MV dec slope: 423.1 cm/sec2 Ao max P.4 mmHg LV V1 max P.3 mmHg Ao V2 mean: 144.3 cm/sec LV V1 mean P.4 mmHg Ao mean P.6 mmHg LV V1 mean: 98.1 cm/sec Ao V2 VTI: 50.6 cm LV V1 VTI: 34.2 cm AV (velocity ratio): 0.68 ARON(I,D): 1.9 cm2 ARON(V,D): 1.9 cm2 SV(LVOT): 97.4 ml PA V2 max: 116.0 cm/sec TR max luca: 297.8 cm/sec TR max P.5 mmHg ECHO/Echo Complete Interpretation Summary Normal LV size. Left ventricular systolic function is normal. The left ventricular ejection fraction is 60 %. Mild (1+) eccentric mitral valve insufficiency. Mild (1+) tricuspid valve insufficiency. Ordering Physician: Laci Guzmán Referring Physician: Vj Isabel MD Performed By: Mira Gonzalez RDCS
--- NOTE | 2024-12-23 16:59 | STRESSREP ---
Stress Test Report Pharmacologic myocardial perfusion stress test. [id number]-year-old lady with a history of shortness of breath. Resting EKG demonstrates sinus bradycardia with a rate of 56 bpm. Resting blood pressure is 148/75 mmHg. 0.4 mg of regadenoson was infused per usual protocol followed by rapid intravenous saline flush injection. Continuous EKG monitoring was performed. The maximum heart rate was 84 bpm which was 62% of max impacted heart rate the maximum workload was 1 metabolic equivalent. At rest there were no ST or T wave changes noted to suggest ischemia and at peak infusion nonspecific ST changes were noted which did not meet the criteria for ischemia. No clinical angina is noted. The final blood pressure was 133/60 mmHg. Myocardial perfusion protocol. 11 point mCi of technetium 99m sestamibi was injected at rest. 0.4 mg of regadenoson was infused per usual protocol. At peak infusion 34.9 mCi of technetium 99m sestamibi was injected stress images were obtained stress and rest images were reconstructed and compared in the short axis vertical long and horizontal long axis. Gated images were also obtained. Perfusion SPECT analysis: Review of the stress images demonstrate normal uptake of tracer noted in all areas of the myocardium. The resting images similar demonstrated normal uptake of tracer noted in all areas of the myocardium. No areas of reversibility are noted to suggest ischemia and no previous infarct is noted. Gated SPECT analysis: The gated ejection fraction is 83%. Conclusion: Normal pharmacologic myocardial perfusion stress test. Preserved ejection fraction.
== END | disposition home or self-care (01) ==
LOC: CVS 06:05
PROVIDERS: PCP Family Medicine; Referring Provider Internal Medicine Cardiovascular Disease; Visit Provider Internal Medicine Cardiovascular Disease
DX: I47.19 Other supraventricular tachycardia (principal); R00.2 Palpitations; R94.31 Abnormal electrocardiogram [ECG] [EKG]
CPT/HCPCS: 78452; 93017; 93306; A9500; A4216; J2785

== ENCOUNTER → 2025-03-30 | Outpatient (CLI) | payer MEDICARE, OTHER, SELFPAY ==
[2025-03-30 15:02] LABS: Hematocrit 43.6 % (37-47); Hemoglobin 14.0 g/dL (12.0-15.0); Mean Corp Hgb Conc 32.1 g/dL (32-36); Mean Corpuscular Volume 96.7 fL (81-99); Mean Platelet Vol. 10.2 fl (6.2-12.0); Platelet Count 322 K/mm3 (150-450); RBC Distribution Width CV 12.8 % (11.6-14.6); RBC Distribution Width SD 45.7 fl (35.1-43.9); Red Blood Count 4.51 M/mm3 (4.2-5.4); White Blood Count 7.0 K/mm3 (4.4-11.0)
[2025-03-30 15:26] LABS: Creatinine, Urine (random) 101.00 mg/dL (28.00-217.00); Microalbumin,Random Urine 19.9 mg/L (<20 mg/L)
[2025-03-30 15:28] LABS: AST(SGOT) 28 U/L (<=31); Alanine Aminotransfer ALT/SGPT 17 U/L (<=34); Albumin, Serum 4.1 g/dL (3.4-4.8); Alkaline Phosphatase 91 U/L (35-104); Anion Gap 11 (5-15); BUN 17 mg/dL (4-19); BUN/Creat Ratio 22.8 RATIO (10-20); Calcium,Total 10.2 mg/dL (7.6-11.0); Carbon Dioxide 26.9 mmol/L (21.0-32.0); Chloride 102 mmol/L (98-108); Globulin 3.2 g/dL (2.2-4.2); Glucose 96 mg/dL (70-99); Potassium 4.0 mmol/L (3.3-5.1)
== END | disposition home or self-care (01) ==
LOC: MTLAB 12:50
PROVIDERS: PCP Family Medicine; Referring Provider Family Medicine; Visit Provider Family Medicine
DX: I10 Essential (primary) hypertension (principal); I35.8 Other nonrheumatic aortic valve disorders; I47.19 Other supraventricular tachycardia
CPT/HCPCS: 36415; 80053; 82043; 82570; 84443; 85027